=== PATIENT | male | born 1955 | race Caucasian/White ===

== ENCOUNTER 2023-07-09 11:38 | Emergency (ER) | payer OTHER ==
[~2023-07-09] VITALS: Ht 177.8 cm; Wt 151.5 kg
[~2023-07-09 11:38] MED LIST: INSULANPEN SC; METF500; Mupirocin22 GM TOP; NOVOLOG100 UNIT/1; Norco 5-325 Ta1 EACH PO; TRAZ50; Zofran4 MG PO
[2023-07-09 13:11] LABS: BASOPHILS PERCENT AUTO 1 % (0-2); Base Excess Venous -3.3 mmol/L; EOSINOPHILS ABSOLUTE AUTO 0.32 K/mm3 (0.00-0.68); EOSINOPHILS PERCENT AUTO 4 % (0-6); Hematocrit 35.9 % (37.0-53.0); Hemoglobin 12.6 g/dL (13.5-17.5); IMMATURE GRAN ABSOLUTE AUTO 0.09 K/mm3 (0.00-0.10); IMMATURE GRAN PERCENT AUTO 1 % (0-1); LYMPHOCYTES ABSOLUTE AUTO 2.42 K/mm3 (0.84-5.20); LYMPHOCYTES PERCENT AUTO 34 % (21-46); MONOCYTES ABSOLUTE AUTO 0.62 K/mm3 (0.16-1.47); MONOCYTES PERCENT AUTO 9 % (4-13); Mean Corpuscular HGB 29.7 pg (26.0-34.0); Mean Corpuscular HGB Conc 35.1 g/dL (31.5-36.5); Mean Corpuscular Volume 85 fL (80-100); Mean Platelet Volume 10.6 fL (9.1-12.4); NEUTROPHILS ABSOLUTE AUTO 3.68 K/mm3 (1.96-9.15); NEUTROPHILS PERCENT AUTO 51 % (41-73); PCO2 Venous 48.4 mmHg (38-42); Platelet Count 176 K/mm3 (150-400); RDW Coefficient Variation 12.8 % (11.7-14.2); RDW Standard Deviation 39.4 fL (35.1-46.3); Red Blood Cell Count 4.24 M/mm3 (4.30-5.90); White Blood Cell Count 7.23 K/mm3 (4.00-11.30); pH Blood Venous 7.29 (7.34-7.37)
[2023-07-09 13:51] LABS: Albumin, Blood 3.1 g/dL (3.4-5.0); Albumin/Globulin Ratio 0.8 (0.8-1.8); Beta-hydroxybutyrate 0.7 mg/dL (0.2-2.8); Bilirubin, Total 0.3 mg/dL (0.1-1.0); Bun/Creatinine Ratio 19.1 (12.0-20.0); Calcium, Blood 8.2 mg/dL (8.5-10.1); Creatinine, Blood 1.78 mg/dL (0.60-1.20); Globulin, Blood 3.8 g/dL (2.2-4.0); Magnesium, Blood 1.8 mg/dL (1.6-2.4); Potassium, Blood 4.3 mmol/L (3.5-5.5); Total Protein, Blood 6.9 g/dL (6.4-8.2)
[2023-07-09] MEDS ORDERED: PRAZOSIN HCL1 M2 PO (14:18)
[2023-07-09 14:19] VITALS: BP 142/93
[2023-07-09] MEDS ORDERED: ATOR40TA PO (14:37)
[2023-07-09] MEDS ORDERED: Prinivil10 MG (14:38)
[2023-07-09] MEDS ORDERED: PROP80ER PO (14:44)
[2023-07-09] MEDS ORDERED: Ultram50 MG PO (14:45)
== END 2023-07-09 15:05 | disposition home or self-care (01) ==
LOC: ER 11:38
PROVIDERS: Emergency Medicine
DX: E11.65 Type 2 diabetes mellitus with hyperglycemia (principal); N17.9 Acute kidney failure, unspecified; R21 Rash and other nonspecific skin eruption; I95.1 Orthostatic hypotension; Z91.030 Bee allergy status; Z88.0 Allergy status to penicillin; Z91.018 Allergy to other foods; Z79.899 Other long term (current) drug therapy; Z79.84 Long term (current) use of oral hypoglycemic drugs; Z79.4 Long term (current) use of insulin; E66.9 Obesity, unspecified; J45.909 Unspecified asthma, uncomplicated; I25.2 Old myocardial infarction; I25.10 Atherosclerotic heart disease of native coronary artery without angina pectoris; I10 Essential (primary) hypertension; E78.5 Hyperlipidemia, unspecified; M19.90 Unspecified osteoarthritis, unspecified site; E11.42 Type 2 diabetes mellitus with diabetic polyneuropathy
CPT/HCPCS: 80053; 82010; 82803; 83735; 85025

== ENCOUNTER 2024-05-31 19:09 | Emergency (ER) | payer OTHER ==
[~2024-05-31] VITALS: Ht 177.8 cm; Wt 127.9 kg
[~2024-05-31 19:09] MED LIST changes: +ASPI81CH PO; +ATOR40TA PO; +GABA100 PO; -METF500; +METF500 PO; +PRAZOSIN HCL1 M2 PO; +PROP80ER PO; +Prinivil10 MG PO; -TRAZ50; +TRAZ50 PO; +Ultram50 MG PO
[2024-05-31 19:31] VITALS: BP 121/66
[2024-05-31] MEDS ORDERED: Diphth,Pertuss(Acell),Tet Vac 0.5 ML VIAL IM ONE (19:35)
[2024-05-31 20:00] LABS: BASOPHILS ABSOLUTE AUTO 0.15 K/mm3 (0.00-0.23); BASOPHILS PERCENT AUTO 1 % (0-2); EOSINOPHILS ABSOLUTE AUTO 0.24 K/mm3 (0.00-0.68); EOSINOPHILS PERCENT AUTO 2 % (0-6); Hematocrit 39.6 % (37.0-53.0); Hemoglobin 13.8 g/dL (13.5-17.5); IMMATURE GRAN PERCENT AUTO 1 % (0-1); LYMPHOCYTES ABSOLUTE AUTO 2.47 K/mm3 (0.84-5.20); LYMPHOCYTES PERCENT AUTO 20 % (21-46); MONOCYTES ABSOLUTE AUTO 0.93 K/mm3 (0.16-1.47); MONOCYTES PERCENT AUTO 8 % (4-13); Mean Corpuscular HGB Conc 34.8 g/dL (31.5-36.5); Mean Corpuscular Volume 83 fL (80-100); Mean Platelet Volume 10.7 fL (9.1-12.4); NEUTROPHILS ABSOLUTE AUTO 8.26 K/mm3 (1.96-9.15); NEUTROPHILS PERCENT AUTO 68 % (41-73); Platelet Count 293 K/mm3 (150-400); RDW Coefficient Variation 12.5 % (11.7-14.2); RDW Standard Deviation 38.3 fL (35.1-46.3); Red Blood Cell Count 4.76 M/mm3 (4.30-5.90); White Blood Cell Count 12.15 K/mm3 (4.00-11.30)
[2024-05-31] MEDS ORDERED: Cephalexin Monohydrate 500 MG Cap PO ONE (20:05)
[2024-05-31] MEDS ORDERED: CEPH500 PO (20:07)
[2024-05-31 20:24] LABS: Albumin, Blood 3.6 g/dL (3.4-5.0); Albumin/Globulin Ratio 0.9 (0.8-1.8); Bilirubin, Total 0.4 mg/dL (0.1-1.0); Bun/Creatinine Ratio 16.8 (12.0-20.0); Calcium, Blood 9.7 mg/dL (8.5-10.1); Creatinine, Blood 1.55 mg/dL (0.60-1.20); Globulin, Blood 4.1 g/dL (2.2-4.0); Potassium, Blood 3.9 mmol/L (3.5-5.5); Total Protein, Blood 7.7 g/dL (6.4-8.2)
== END 2024-05-31 20:50 | disposition home or self-care (01) ==
LOC: ER 19:09
PROVIDERS: Emergency Medicine
DX: L08.9 Local infection of the skin and subcutaneous tissue, unspecified (principal); E11.9 Type 2 diabetes mellitus without complications; J45.909 Unspecified asthma, uncomplicated; Z91.038 Other insect allergy status; Z88.0 Allergy status to penicillin; Z91.02 Food additives allergy status; Z79.4 Long term (current) use of insulin; Z79.84 Long term (current) use of oral hypoglycemic drugs; Z79.82 Long term (current) use of aspirin; Z79.899 Other long term (current) drug therapy
CPT/HCPCS: 73630; 80053; 85025; 90471; 90715; 99283-25; A9270

== ENCOUNTER 2024-07-22 15:57 | Inpatient (IN) | payer OTHER ==
[~2024-07-22] VITALS: Ht 177.8 cm; Wt 129.2 kg
[~2024-07-22 15:57] MED LIST changes: -ASPI81CH PO; +Aspir 8181 MG PO; +CEPH500 PO
[2024-07-22 17:04] LABS: BASOPHILS ABSOLUTE AUTO 0.16 K/mm3 (0.00-0.23); BASOPHILS PERCENT AUTO 1 % (0-2); EOSINOPHILS ABSOLUTE AUTO 0.28 K/mm3 (0.00-0.68); EOSINOPHILS PERCENT AUTO 2 % (0-6); Hematocrit 36.5 % (37.0-53.0); Hemoglobin 12.1 g/dL (13.5-17.5); IMMATURE GRAN ABSOLUTE AUTO 0.59 K/mm3 (0.00-0.10); IMMATURE GRAN PERCENT AUTO 3 % (0-1); LYMPHOCYTES ABSOLUTE AUTO 3.26 K/mm3 (0.84-5.20); LYMPHOCYTES PERCENT AUTO 17 % (21-46); MONOCYTES ABSOLUTE AUTO 1.55 K/mm3 (0.16-1.47); MONOCYTES PERCENT AUTO 8 % (4-13); Mean Corpuscular HGB 27.9 pg (26.0-34.0); Mean Corpuscular HGB Conc 33.2 g/dL (31.5-36.5); Mean Corpuscular Volume 84 fL (80-100); NEUTROPHILS PERCENT AUTO 69 % (41-73); Platelet Count 399 K/mm3 (150-400); RDW Coefficient Variation 13.2 % (11.7-14.2); RDW Standard Deviation 40.7 fL (35.1-46.3); Red Blood Cell Count 4.33 M/mm3 (4.30-5.90); White Blood Cell Count 18.74 K/mm3 (4.00-11.30)
[2024-07-22 17:30] LABS: Albumin, Blood 2.7 g/dL (3.4-5.0); Albumin/Globulin Ratio 0.5 (0.8-1.8); Bilirubin, Total 0.4 mg/dL (0.1-1.0); Bun/Creatinine Ratio 22.2 (12.0-20.0); Calcium, Blood 9.5 mg/dL (8.5-10.1); Creatinine, Blood 1.17 mg/dL (0.60-1.20); Globulin, Blood 5.7 g/dL (2.2-4.0); Potassium, Blood 4.2 mmol/L (3.5-5.5); Total Protein, Blood 8.4 g/dL (6.4-8.2)
[2024-07-22] MEDS ORDERED: Cefepime HCl 2,000 MG in NS 100 ML IV ONE (20:00)
[2024-07-22] MEDS ORDERED: HYDROcodone 5-APAP 325 TAB PO PRN (21:50)
[2024-07-22] MEDS ORDERED: Ondansetron HCl 2 MG / ML 2ML Vial IV PRN (21:50)
[2024-07-22] MEDS ORDERED: FLU VACC TS2024-25(6MOS UP)/PF 45 MCG/0.5 ML SYRINGE IM ONE (21:55)
[2024-07-22] MEDS ORDERED: HYDROcodone 5-APAP 325 TAB PO ONE (22:00)
[2024-07-22] MEDS ORDERED: Insulin Glargine-Yfgn 100 Unit/mL 3 ML SYR SC SCH (22:00)
[2024-07-22] MEDS ORDERED: NS 1,000 ML IV SCH (23:30)
[2024-07-22] MEDS ORDERED: Vancomycin HCL 2,500 MG in NS 500 ML IV ONE (23:55)
[2024-07-23] VITALS (15 sets, daily range): BP systolic 108–159; BP diastolic 61–139
[2024-07-23 05:07] LABS: BASOPHILS ABSOLUTE AUTO 0.19 K/mm3 (0.00-0.23); BASOPHILS PERCENT AUTO 1 % (0-2); EOSINOPHILS ABSOLUTE AUTO 0.32 K/mm3 (0.00-0.68); EOSINOPHILS PERCENT AUTO 2 % (0-6); Hematocrit 34.5 % (37.0-53.0); Hemoglobin 11.4 g/dL (13.5-17.5); IMMATURE GRAN PERCENT AUTO 4 % (0-1); LYMPHOCYTES ABSOLUTE AUTO 3.07 K/mm3 (0.84-5.20); LYMPHOCYTES PERCENT AUTO 18 % (21-46); MONOCYTES ABSOLUTE AUTO 1.47 K/mm3 (0.16-1.47); MONOCYTES PERCENT AUTO 9 % (4-13); Mean Corpuscular HGB 27.8 pg (26.0-34.0); Mean Corpuscular Volume 84 fL (80-100); Mean Platelet Volume 10.1 fL (9.1-12.4); NEUTROPHILS ABSOLUTE AUTO 11.11 K/mm3 (1.96-9.15); NEUTROPHILS PERCENT AUTO 66 % (41-73); Platelet Count 341 K/mm3 (150-400); RDW Coefficient Variation 13.2 % (11.7-14.2); RDW Standard Deviation 41.1 fL (35.1-46.3); White Blood Cell Count 16.86 K/mm3 (4.00-11.30)
[2024-07-23 05:23] LABS: International Normalized Ratio 1.14; Prothrombin Time Results 12.1 Sec (9.7-11.5)
[2024-07-23 05:34] LABS: Albumin, Blood 2.4 g/dL (3.4-5.0); Albumin/Globulin Ratio 0.4 (0.8-1.8); Bilirubin, Total 0.5 mg/dL (0.1-1.0); Bun/Creatinine Ratio 27.7 (12.0-20.0); Creatinine, Blood 1.01 mg/dL (0.60-1.20); Globulin, Blood 5.4 g/dL (2.2-4.0); Magnesium, Blood 1.8 mg/dL (1.6-2.4); Potassium, Blood 4.3 mmol/L (3.5-5.5); Total Protein, Blood 7.8 g/dL (6.4-8.2)
[2024-07-23] MEDS ORDERED: CefTRIAXone Sodium 1,000 MG in NS 100 ML IV SCH (06:00)
[2024-07-23] MEDS ORDERED: CefTRIAXone Sodium 2,000 MG in NS 100 ML IV SCH (06:00)
--- NOTE | 2024-07-23 07:17 | NUR ---
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 He has diabetic neuropathy and an ulcer under his L pinky toe. The entire foot is red and the skin is yellow under all of the toes. Pictures are in the chart. I requested a podiatry consult as ordered, I spoke to the answering service, see the order query. Per podiatry office they should see the pt this AM. Pt has been NPO as ordered incase a surgery can be done today. He is AOx4, continent, 1 SBA if up but uses the urinal in bed.
[2024-07-23] MEDS ORDERED: Lactobacil 2-S.Thermo-Bifido 1 1 Cap PO SCH (09:00)
[2024-07-23] MEDS ORDERED: Atorvastatin 40 MG Tab PO SCH (09:00)
[2024-07-23] MEDS ORDERED: Gabapentin 100 MG Cap PO SCH (09:00)
[2024-07-23] MEDS ORDERED: Lisinopril 10 MG Tab PO SCH (09:00)
[2024-07-23] MEDS ORDERED: Bupivacaine 0.5% HCl 5 MG/ML 30MLVIAL ONE (12:24)
[2024-07-23] MEDS ORDERED: Lidocaine HCl 2% 10 ML SDA ONE (12:24)
[2024-07-23] MEDS ORDERED: FentaNYL Citrate 50 MCG/ML 2 ML Injection ONE (13:59)
[2024-07-23] MEDS ORDERED: propofoL 40 ML IV ONE (13:59)
[2024-07-23] MEDS ORDERED: Midazolam HCl 1MG / ML 2ML Vial ONE (13:59)
[2024-07-23] MEDS ORDERED: Ondansetron HCl 2 MG / ML 2ML Vial ONE (13:59)
[2024-07-23] MEDS ORDERED: Vancomycin HCL 1,750 MG in NS 500 ML IV SCH (14:00)
[2024-07-23] MEDS ORDERED: Lidocaine HCl 1% 30 ML SDV ONE (14:22)
[2024-07-23] MEDS ORDERED: Ipratropium/Albuterol SulF 2.5-0.5MG/3 ML Amp INH ONE (14:25)
[2024-07-23] MEDS ORDERED: Lactated Ringer's 1,000 ML IV SCH (14:25)
--- NOTE | 2024-07-23 14:30 | NUR ---
INTO SDS VIA Optyn. PT A&OX4. PT REPORTS 5/10 LEFT FOOT PAIN. HISTORY AND ALERGIES REVIEWED. LUNGS CLEAR, BUT DIMINISHED IN THE BASES. SATS>90% ON RA. NO NOTED SOB. DUO NEB GIVEN. NPO STATUS CONFIRMED. NEW #18 PIV PLACED TO LEFT UPPER ARM USING ULTRA SOUND.
[2024-07-23] MEDS ORDERED: Ketorolac Tromethamine 30mg Vial ONE (14:42)
[2024-07-23] MEDS ORDERED: Citric Acid/Sodium Citrate 30 ML BTL PO ONE (14:45)
--- NOTE | 2024-07-23 15:37 | NUR ---
07/23/24 1537 Bhupendra Vazquez PT ON SCHEDULED ANTIBIOTICS AND RECIEVED PRIOR TO START OF CASE
[2024-07-23] MEDS ORDERED: Insulin Human Lispro 100 Units/ML 3ML Syringe SC SCH ×2 (16:30)
--- NOTE | 2024-07-23 17:54 | NUR ---
SHIFT SUMMARY PT CONT LEVEL OF CARE. PT IS A&OX 4. PT NOTED TO CALL APPROPRIATE AND COOROPERATE WITH CARES. PT TMA DONE THIS SHIFT AND IS TO BE NON-WEIGHT BEARING TO L FOOT. PT DENIES PAIN AT THIS TIME. PT CONT WITH POST OP VITALS WHICH ARE NOTED TO BE WNL. PT NOTED TO TOLERATE PO INTAKE WITH NO ISSUES.
[2024-07-23] MEDS ORDERED: INSULIN AS100 UNIT/8 SC (18:39)
[2024-07-23] MEDS ORDERED: Arginine/Glutamine/Calcium Hmb 1 Packet PO SCH (21:00)
[2024-07-23] MEDS ORDERED: Prazosin HCl 1 MG Cap PO SCH (21:00)
[2024-07-24 02:25] VITALS: BP 101/72
--- NOTE | 2024-07-24 06:18 | NUR ---
Shift Summary TMA performed on L foot yesterday, no abnormalities in post OP vitals. Education was reinforced to remain completely NWB as the DR has ordered although pt still stood on that foot several times while voiding. Some blood was soaking through the dressing, I reinforced the dressing as indicated in the wound care dressing order. Plan is for the DR to come in today and change the dressing and assess the foot to see what further intervention may be necessary.
[2024-07-24 07:10] VITALS: BP 133/73
[2024-07-24 09:27] LABS: BASOPHILS ABSOLUTE AUTO 0.14 K/mm3 (0.00-0.23); BASOPHILS PERCENT AUTO 1 % (0-2); EOSINOPHILS ABSOLUTE AUTO 0.26 K/mm3 (0.00-0.68); EOSINOPHILS PERCENT AUTO 2 % (0-6); Hematocrit 33.8 % (37.0-53.0); IMMATURE GRAN ABSOLUTE AUTO 0.51 K/mm3 (0.00-0.10); IMMATURE GRAN PERCENT AUTO 4 % (0-1); LYMPHOCYTES ABSOLUTE AUTO 2.08 K/mm3 (0.84-5.20); LYMPHOCYTES PERCENT AUTO 17 % (21-46); MONOCYTES PERCENT AUTO 9 % (4-13); Mean Corpuscular HGB Conc 32.5 g/dL (31.5-36.5); Mean Corpuscular Volume 86 fL (80-100); NEUTROPHILS ABSOLUTE AUTO 8.13 K/mm3 (1.96-9.15); NEUTROPHILS PERCENT AUTO 67 % (41-73); Platelet Count 286 K/mm3 (150-400); RDW Coefficient Variation 13.4 % (11.7-14.2); RDW Standard Deviation 42.1 fL (35.1-46.3); Red Blood Cell Count 3.93 M/mm3 (4.30-5.90); White Blood Cell Count 12.22 K/mm3 (4.00-11.30)
[2024-07-24 09:43] LABS: Calcium, Blood 8.7 mg/dL (8.5-10.1); Creatinine, Blood 0.94 mg/dL (0.60-1.20); Potassium, Blood 4.4 mmol/L (3.5-5.5)
[2024-07-24 11:17] LABS: U Amphetamine Screen Not Detected; U Barbituate Screen Not Detected; U Benzodiazapine Screen Not Detected; U Buprenorphine Screen Not Detected; U Cannabinoids Screen Not Detected; U Cocaine Screen Not Detected; U Methadone Screen Not Detected; U Methamphetamine Screen Not Detected; U Opiates Screen DETECTED; U Oxycodone Screen Not Detected; U Phencyclidine Screen Not Detected
[2024-07-24 13:50] LABS: Vancomycin, Trough 28.6 ug/mL (5.0-10.0)
[2024-07-24 15:45] VITALS: BP 127/74
--- NOTE | 2024-07-24 18:04 | NUR ---
SHIFT SUMMARY PT RESTING QUIETLY WATCHING TV DURING SHIFT REPORT. PLEASANT AND CO-OP WITH CARE. NO C/O. DRSG TO L FOOT TOE AMPUTATIONS C/D/I AFTER BEING REINFORCED BY NOC SHIFT. DR HARRINGTON HERE BEFORE NOON TO CHANGE DRSG'S AND ASSESS L FOOT. DR HARRINGTON TO RETURN TOMORROW TO REASSESS AND CHANGE DRSG AGAIN. PT MEDICATED X1 FOR C/O PAIN. USED URINAL AT BS THRU OUT SHIFT. THERAPY IN TO WORK WITH PT AND ASSESS FOR NEEDS. PT REMAINS STRICT NWB AT THIS TIME. BED LINENS CHANGED TODAY WHEN PT UP TO CHAIR. FRIEND IN TO VISIT A COUPLE OF TIMES, TAKING LAUNDRY WITH HIM. SITTING UP TO CHAIR EATING DINNER. DENIES FURTHER NEEDS. CALL LT IN REACH.
[2024-07-24 19:52] VITALS: BP 178/65
[2024-07-24 20:14] VITALS: BP 150/83
[2024-07-25 04:47] LABS: Hematocrit 33.3 % (37.0-53.0); Mean Corpuscular HGB 28.1 pg (26.0-34.0); Mean Corpuscular Volume 85 fL (80-100); Platelet Count 321 K/mm3 (150-400); RDW Coefficient Variation 13.2 % (11.7-14.2); RDW Standard Deviation 40.9 fL (35.1-46.3); Red Blood Cell Count 3.91 M/mm3 (4.30-5.90); White Blood Cell Count 10.23 K/mm3 (4.00-11.30)
[2024-07-25 04:49] VITALS: BP 167/68
[2024-07-25 05:16] LABS: Anion Gap 12 mmol/L (3-11); Blood Urea Nitrogen 24 mg/dL (8-24); Bun/Creatinine Ratio 26.1 (12.0-20.0); CO2, Blood 22 mmol/L (21-32); Calcium, Blood 8.9 mg/dL (8.5-10.1); Chloride, Blood 109 mmol/L (98-108); Creatinine, Blood 0.92 mg/dL (0.60-1.20); Glomerular Filtration Rate 91 (60-); Glucose, Blood 266 mg/dL (70-99); Sodium, Blood 139 mmol/L (136-145); Vancomycin, Random 13.5 ug/mL
[2024-07-25 05:21] LABS: BAND PERCENT MAN 1 % (0-8); BASOPHILS PERCENT MAN 2 % (0-2); EOSINOPHILS PERCENT MAN 1 % (0-6); LYMPHOCYTES ABSOLUTE MAN 2.35 K/mm3 (0.84-5.20); LYMPHOCYTES PERCENT MAN 23 % (21-46); METAMYELOCYTE PERCENT MAN 3 % (0-0); MONOCYTES ABSOLUTE MAN 0.71 K/mm3 (0.16-1.47); MONOCYTES PERCENT MAN 7 % (4-13); MYELOCYTE PERCENT MAN 2 % (0-0); NEUTROPHILS ABSOLUTE MAN 6.34 K/mm3 (1.96-9.15); SEG NEUTROPHILS PERCENT MAN 61 % (41-73); TOTAL CELLS COUNTED 100
--- NOTE | 2024-07-25 06:42 | NUR ---
NEONATAL SOCIAL WORKER SUMMARY NO ACUTE EVENTS OVERNIGHT. NO CHANGES. SEE ASSESSMENT,VITAL SIGNS, EMAR.
[2024-07-25] MEDS ORDERED: Vancomycin HCL 1,750 MG in NS 500 ML IV SCH (08:00)
[2024-07-25 08:12] VITALS: BP 176/103
[2024-07-25] MEDS ORDERED: Metoprolol Succinate 25 MG TABCR PO SCH (11:00)
[2024-07-25] MEDS ORDERED: MetFORMIN HCl 500 mg PO SCH (17:00)
--- NOTE | 2024-07-25 17:18 | NUR ---
SHIFT SUMMARY PT AWAKE AT START OF SHIFT FOR REPORT. PLEASANT AND CO-OP WITH CARE. PT RECEIVING IV ABX FOR DIABETIC FOOT INFECTION. DRSG TO L FOOT REMAINS C/D/I. DR HARRINGTON STATED AT YESTERDAY'S DRSG CHANGE THAT HE WOULD BE BACK TODAY TO ASSESS FOOT AND CHANGE DRSG, BUT HAS NOT BEEN HERE OF YET. DR PATTON HERE THIS AM TO SEE PT AND DISCUSS PLAN OF CARE. PT TO D/C TO SNF FOR ABX AND REHAB TOMORROW IF BED AVAILABLE. PURCHASING ADMINISTRATOR HERE THIS AFTERNOON TO DISCUSS PLAN WITH PT WELL. PT HAS BEEN NWTB TO L FOOT. USING URINAL IN BED. ALBE TO PIVOT TX TO CHAIR FOR MEALS. A&O, ABLE TO MAKE NEEDS KNOWN. TALKING ON PHONE AT THIS TIME. CALL LT IN REACH.
[2024-07-25 19:31] VITALS: BP 178/87
[2024-07-25] MEDS ORDERED: Apixaban 5 MG Tab PO SCH (21:00)
[2024-07-25 23:00] VITALS: BP 171/96
[2024-07-25 23:59] VITALS: BP 155/91
[2024-07-26 05:06] VITALS: BP 155/73
[2024-07-26 06:26] LABS: Hematocrit 31.9 % (37.0-53.0); Hemoglobin 10.7 g/dL (13.5-17.5); Mean Corpuscular HGB 27.9 pg (26.0-34.0); Mean Corpuscular HGB Conc 33.5 g/dL (31.5-36.5); Mean Corpuscular Volume 83 fL (80-100); Mean Platelet Volume 9.7 fL (9.1-12.4); Platelet Count 320 K/mm3 (150-400); RDW Coefficient Variation 13.2 % (11.7-14.2); RDW Standard Deviation 39.7 fL (35.1-46.3); Red Blood Cell Count 3.84 M/mm3 (4.30-5.90)
[2024-07-26 06:46] LABS: Bun/Creatinine Ratio 24.8 (12.0-20.0); Creatinine, Blood 0.73 mg/dL (0.60-1.20); Potassium, Blood 3.9 mmol/L (3.5-5.5)
[2024-07-26 08:19] VITALS: BP 170/77
[2024-07-26 08:54] LABS: BASOPHILS ABSOLUTE MAN 0.29 K/mm3 (0.00-0.23); BASOPHILS PERCENT MAN 3 % (0-2); EOSINOPHILS ABSOLUTE MAN 0.19 K/mm3 (0.00-0.68); EOSINOPHILS PERCENT MAN 2 % (0-6); LYMPHOCYTES ABSOLUTE MAN 1.86 K/mm3 (0.84-5.20); LYMPHOCYTES PERCENT MAN 19 % (21-46); METAMYELOCYTE ABSOLUTE MAN 0.09 K/mm3 (0.00-0.00); METAMYELOCYTE PERCENT MAN 1 % (0-0); MONOCYTES ABSOLUTE MAN 0.39 K/mm3 (0.16-1.47); MONOCYTES PERCENT MAN 4 % (4-13); MYELOCYTE ABSOLUTE MAN 0.19 K/mm3 (0.00-0.00); MYELOCYTE PERCENT MAN 2 % (0-0); NEUTROPHILS ABSOLUTE MAN 6.76 K/mm3 (1.96-9.15); SEG NEUTROPHILS PERCENT MAN 69 % (41-73); TOTAL CELLS COUNTED 100
[2024-07-26] MEDS ORDERED: Lisinopril 20 MG Tab PO SCH (09:00)
--- NOTE | 2024-07-26 09:00 | NUR ---
pt laying in bed awake a/ox4, pleasant and cooperative with care, follows commands well, denies any pain, states he didn't sleep well last night, lungs are clear t/o, resp even and unlabored, on r/a, no cough noted, hrr, no edema noted, piv to r hand, site is clear and patent, btx4, abd flat soft nontender, voids without diff, skin has dressing to left foot no drainage noted, latanya davies, is ambulating to bathroom and states he's not putting weight on left foot, latanya, call light in reach.
[2024-07-26 10:35] VITALS: BP 159/90
[2024-07-26 12:40] LABS: CORONAVIRUS COVID-19 AG Negative (NEGATIVE)
[2024-07-26] MEDS ORDERED: HydrALAZINE HCl 25 MG Tab PO ONE (14:00)
--- NOTE | 2024-07-26 16:23 | NUR ---
1650 W/[facility] TRANSP[facility] HERE FOR P/U. PT GOING TO FOR REHAB. ALL BELONGINGS WENT WITH PT.
== END 2024-07-26 15:47 | DRG 616 ==
LOC: ER 15:57 → MEDS 22:27 → ERHOLD 22:27 → MEDS 07-23 00:32
PROVIDERS: Hospitalist; Internal Medicine; Nurse Practitioner Acute Care; Physician Assistant; ADMIT Internal Medicine
PROC: 0Y6N0Z9 Detachment at Left Foot, Partial 1st Ray, Open Approach (ICD-10-PCS; principal; 2024-07-25)
PROC: 0Y6N0ZB Detachment at Left Foot, Partial 2nd Ray, Open Approach (ICD-10-PCS; 2024-07-25)
PROC: 0Y6N0ZC Detachment at Left Foot, Partial 3rd Ray, Open Approach (ICD-10-PCS; 2024-07-25)
PROC: 0Y6N0ZD Detachment at Left Foot, Partial 4th Ray, Open Approach (ICD-10-PCS; 2024-07-25)
PROC: 0Y6N0ZF Detachment at Left Foot, Partial 5th Ray, Open Approach (ICD-10-PCS; 2024-07-25)
DX: E11.69 Type 2 diabetes mellitus with other specified complication (principal); A48.0 Gas gangrene; M72.6 Necrotizing fasciitis; M86.8X7 Other osteomyelitis, ankle and foot; L03.116 Cellulitis of left lower limb; Z68.41 Body mass index [BMI] 40.0-44.9, adult; E11.52 Type 2 diabetes mellitus with diabetic peripheral angiopathy with gangrene; F41.9 Anxiety disorder, unspecified; F31.9 Bipolar disorder, unspecified; I25.10 Atherosclerotic heart disease of native coronary artery without angina pectoris; G89.29 Other chronic pain; M54.9 Dorsalgia, unspecified; E78.5 Hyperlipidemia, unspecified; J45.20 Mild intermittent asthma, uncomplicated; M19.90 Unspecified osteoarthritis, unspecified site; E66.01 Morbid (severe) obesity due to excess calories; E11.42 Type 2 diabetes mellitus with diabetic polyneuropathy; F15.10 Other stimulant abuse, uncomplicated; I10 Essential (primary) hypertension; G47.33 Obstructive sleep apnea (adult) (pediatric); Z91.09 Other allergy status, other than to drugs and biological substances; Z88.0 Allergy status to penicillin; Z79.899 Other long term (current) drug therapy; Z79.891 Long term (current) use of opiate analgesic; Z79.4 Long term (current) use of insulin; Z79.811 Long term (current) use of aromatase inhibitors; Z79.82 Long term (current) use of aspirin; Z79.2 Long term (current) use of antibiotics; Z79.84 Long term (current) use of oral hypoglycemic drugs; I25.2 Old myocardial infarction; Z98.890 Other specified postprocedural states; Z28.89 Immunization not carried out for other reason; Z91.030 Bee allergy status; Z91.018 Allergy to other foods
CPT/HCPCS: 36415; 73620; 80048; 80053; 80202; 82947; 83735; 85025; 85610; 87040; 87426-QW; 88307; 88311; 94762; 96365; 97110; 97116; 97161; 97530; 99285-25; A9270; J0692; J0696; J1815; J1885; J2003; J2250; J2405; J2704; J3010; J3370; J7030; J7040; J7120

== ENCOUNTER 2025-01-17 18:09 | Emergency (ER) | payer OTHER ==
[~2025-01-17] VITALS: Ht 177.8 cm; Wt 136.1 kg
[~2025-01-17 18:09] MED LIST changes: +INSULIN AS100 UNIT/8 SC
[2025-01-17] MEDS ORDERED: Ondansetron 4 MG SoluTab SL ONE (19:05)
[2025-01-17 20:41] LABS: BASOPHILS ABSOLUTE AUTO 0.11 K/mm3 (0.00-0.23); BASOPHILS PERCENT AUTO 1 % (0-2); EOSINOPHILS ABSOLUTE AUTO 0.04 K/mm3 (0.00-0.68); EOSINOPHILS PERCENT AUTO 0 % (0-6); Hematocrit 40.3 % (37.0-53.0); Hemoglobin 14.3 g/dL (13.5-17.5); IMMATURE GRAN ABSOLUTE AUTO 0.11 K/mm3 (0.00-0.10); IMMATURE GRAN PERCENT AUTO 1 % (0-1); LYMPHOCYTES ABSOLUTE AUTO 2.05 K/mm3 (0.84-5.20); LYMPHOCYTES PERCENT AUTO 19 % (21-46); MONOCYTES PERCENT AUTO 6 % (4-13); Mean Corpuscular HGB 28.4 pg (26.0-34.0); Mean Corpuscular HGB Conc 35.5 g/dL (31.5-36.5); Mean Corpuscular Volume 80 fL (80-100); Mean Platelet Volume 9.4 fL (9.1-12.4); NEUTROPHILS ABSOLUTE AUTO 7.77 K/mm3 (1.96-9.15); NEUTROPHILS PERCENT AUTO 73 % (41-73); Platelet Count 296 K/mm3 (150-400); RDW Coefficient Variation 14.1 % (11.7-14.2); RDW Standard Deviation 40.3 fL (35.1-46.3); Red Blood Cell Count 5.03 M/mm3 (4.30-5.90); White Blood Cell Count 10.68 K/mm3 (4.00-11.30)
[2025-01-17 21:22] LABS: Albumin, Blood 3.8 g/dL (3.4-5.0); Albumin/Globulin Ratio 0.8 (0.8-1.8); Bilirubin, Total 0.6 mg/dL (0.1-1.0); Bun/Creatinine Ratio 13.5 (12.0-20.0); Calcium, Blood 9.3 mg/dL (8.5-10.1); Creatinine, Blood 0.89 mg/dL (0.60-1.20); Globulin, Blood 4.5 g/dL (2.2-4.0); Potassium, Blood 4.2 mmol/L (3.5-5.5); Total Protein, Blood 8.3 g/dL (6.4-8.2)
[2025-01-17 22:05] LABS: Source, Urine Clean Catch
[2025-01-17 22:07] LABS: Appearance, Urine Hazy (Clear); Bilirubin, Urine Neg (Neg); Blood, Urine 4+ (Neg); Color, Urine Yellow (P-Yellow); Glucose Qualitative, Urine 4+ (Neg); Ketones, Urine 3+ (Neg); Leukocyte Esterase, Urine Neg (Neg); Nitrite, Urine Neg (Neg); Protein, Urine 2+ (Neg); Specific Gravity, Urine 1.025 (1.003-1.022); Urobilinogen, Urine NORM (Normal)
[2025-01-17 22:13] LABS: Base Excess Venous 1.2 mmol/L; Bicarbonate Venous 24.1 mmol/L (24.0-30.0); PCO2 Venous 49.9 mmHg (38-42); pH Blood Venous 7.34 (7.34-7.37)
[2025-01-17 22:54] LABS: Bacteria Few /hpf; Red Blood Cells, Urine 25-50 /hpf (0-2); Squamous Epithelial Cells Few /hpf (Few); White Blood Cells, Urine 0-2 /hpf (0-5)
[2025-01-17 23:30] VITALS: BP 167/90
[2025-01-18] MEDS ORDERED: ONDA4 PO (00:33)
== END 2025-01-18 00:54 | disposition home or self-care (01) ==
LOC: ER 18:09
PROVIDERS: Student in an Organized Health Care Education/Training Program
DX: R11.2 Nausea with vomiting, unspecified (principal); R10.31 Right lower quadrant pain; E11.9 Type 2 diabetes mellitus without complications; I25.10 Atherosclerotic heart disease of native coronary artery without angina pectoris; I10 Essential (primary) hypertension; Z79.4 Long term (current) use of insulin; Z79.899 Other long term (current) drug therapy; Z79.82 Long term (current) use of aspirin; Z88.0 Allergy status to penicillin; Z91.030 Bee allergy status; Z91.018 Allergy to other foods
CPT/HCPCS: 71046; 80053; 81001; 82803; 83690; 83930; 84484; 85025; 93005; 93010; 99284-25; A9270